=== PATIENT | female | born 1975 ===

== ENCOUNTER 2020-08-11 09:28 | Outpatient (CLI) | payer OTHER | END 2020-08-11 11:02 | disposition home or self-care (01) | LOC: SONOGRAMA 09:28 | PROVIDERS: ATTEND Pathology Anatomic Pathology & Clinical Pathology | DX: E04.2 Nontoxic multinodular goiter (principal) ==

== ENCOUNTER 2023-11-28 13:20 | Outpatient (CLI) | payer OTHER | END 2023-11-28 13:26 | disposition home or self-care (01) | LOC: SONOGRAMA 13:20 | PROVIDERS: ATTEND Pathology Anatomic Pathology & Clinical Pathology | DX: D34 Benign neoplasm of thyroid gland (principal); E07.89 Other specified disorders of thyroid; E04.2 Nontoxic multinodular goiter ==